=== PATIENT | male | born 1990 | race Caucasian/White ===

== ENCOUNTER 2017-01-21 03:00 | Inpatient (IN) | payer MEDICARE, MEDICAID ==
[~2017-01-21] VITALS: Ht 175.3 cm; Wt 73.0 kg
--- NOTE | ~2017-01-21 | HP ---
[facility] 26 Y [address] ROOM: [address] [address] LOCATION: GICU ADMIT DATE: 01/21/2017 History & Physical DISCHARGE DATE: FAMILY PHYSICIAN: PHYSICIAN, UNKNOWN ATTENDING PHYSICIAN: ELLA CAMERON V DATE OF SERVICE: CHIEF COMPLAINT FOR THIS ADMISSION: Nausea and vomiting. HISTORY OF PRESENT ILLNESS: The patient is a 26-year-old male with a past medical history of insulin- dependent diabetes with recurrent DKA. The patient presented to the ER in [place] earlier today with complaints of vomiting. There, he was found to be in severe DKA with a bicarb of 6, glucose in the 1000s, and potassium of 7. He also had a creatinine of 2.46, which is up from baseline. The patient denies any fevers, chills, diaphoresis, or dysuria leading up to his presentation. REVIEW OF SYSTEMS: Positive for need to urinate as well as nausea and vomiting. PAST MEDICAL HISTORY: The patient denies though review of records does show recurrent DKA as well history of severe gastritis, Ya esophagitis. CURRENT MEDICATIONS: 1. Lantus. 2. NovoLog. SOCIAL HISTORY: The patient denies any drug, tobacco, or alcohol use. FAMILY HISTORY: The patient denies. PHYSICAL EXAMINATION: VITAL SIGNS: At this point, his blood pressure is 110s/80s, heart rate is 140, satting 96% on room air, afebrile, and respirations are in mid 20s. GENERAL: Appears as an ill, middle-aged male, in mild distress due to nausea and retching. NEUROLOGIC: Exam is nonfocal. EYES: Exam shows pupils are equal and reactive to light. [facility] AGE: 26 Y [address] ROOM: [address] [address] LOCATION: GICU ADMIT DATE: 01/21/2017 History & Physical DISCHARGE DATE: FAMILY PHYSICIAN: PHYSICIAN, UNKNOWN ATTENDING PHYSICIAN: ELLA CAMERON V LYMPHATIC: Exam shows no cervical lymphadenopathy. ENDOCRINE: Exam shows no thyromegaly. ENT: Exam reveals dry mucous membranes. LUNGS: Clear to auscultation. HEART: Rate is tachycardic and regular. No appreciable murmurs, gallops, or rubs. GI: Abdomen is soft, nontender, and nondistended. : No costovertebral angle tenderness. VASCULAR: A 2+ pedal pulses. MUSCULOSKELETAL: No muscle or joint abnormalities. PSYCHIATRIC: Exam shows irritated mood, but preserved cognition and affect. LABORATORY DATA: Studies from the outside facility are significant for white count of 28,000, hemoglobin of 17.5, and platelets of 516. Sodium 140, potassium 7.0, chloride 90, carbon dioxide is 6, glucose is 1067, BUN 44, and creatinine 2.46. Subsequent to the patient having received normal saline, bicarb, and insulin as well as calcium as requested by me, his potassium improved to 5.7. His EKG from the outside facility shows sinus tachycardia with diffusely peaked T- waves consistent with hyperkalemia. Urinalysis is remarkable for elevated glucose. ASSESSMENT AND PLAN: This is a 26-year-old male admitted for: 1. Diabetic ketoacidosis. We will begin the patient on an insulin drip and continue replacing fluids. We will check serial electrolytes and when his potassium level comes down we will change the fluids to potassium containing normal saline. Once his Accu-Cheks improved to below 250, we will switch the fluids to dextrose containing. Once his anion gap closes, we will discontinue the insulin drip. 2. Hyperkalemia. This is improved, but we will check his EKG for resolution of changes and monitor his potassium closely. 3. Acute kidney injury. This is due to severe dehydration. We will hydrate the patient and trend his renal function. 4. Insulin-dependent diabetes. We will request a nurse educator as the patient is clearly not in good control of his diabetes. 5. Leukocytosis. We will draw blood cultures, but at this point, I do not appreciate a focus of infection. 6. Additional management will depend on clinical course. Time dedicated to this patient's encounter is 35 minutes. ELLA CAMERON MD PATIENT'S NAME: YOKO CURRAN [facility] AGE: 26 Y [address] ROOM: [place] [id number] LOCATION: [facility] ADMIT DATE: 01/21/2017 History & Physical DISCHARGE DATE: FAMILY PHYSICIAN: PHYSICIAN, UNKNOWN ATTENDING PHYSICIAN: ELLA CAMERON/ash /[id number] D: [id number] T: HISTORY & PHYSICAL
[~2017-01-21 03:00] MED LIST changes: -NAPROXEN500 MG PO; -PEPTO-BISM525 MG/15 PO; -REGLAN10 MG PO; -ZOLOFT25 MG PO
[2017-01-21 04:29] LABS: BICARBONATE 15.8 mmol/L (18.0-23.0); LACTATE 5.4 mEq/L (0.50-1.60); PCO2 36 mmHg (35-45)
[2017-01-21 04:30] LABS: PO2 42 mmHg (80-90)
[2017-01-21 04:32] LABS: BASOPHIL # 0.1 K/uL (0.0-0.2); BASOPHIL % 0.3 %; HEMATOCRIT 54.3 % (37.0-53.0); IMMATURE GRANULOCYTE # 0.3 K/uL (0.0-0.3); IMMATURE GRANULOCYTE % 1.1 %; LYMPHOCYTE # 1.4 K/uL (0.8-4.0); LYMPHOCYTE % 5.8 %; MCHC 33.1 gm/dL (32.0-36.5); MCV 81.5 fl (83.0-98.0); MONOCYTE # 1.5 K/uL (0.0-1.0); MONOCYTE % 6.3 %; MPV 9.7 fl (9.4-12.4); NEUTROPHIL # (ANC) 20.3 K/uL (1.4-9.0); NEUTROPHIL % 86.5 %; NRBC % 0 /100WBC (0-0.00); PLATELET COUNT 468 K/uL (150-450); RBC 6.66 M/uL (4.00-6.00); RDW-CV 13.5 % (11.9-14.6); WBC 23.5 K/uL (4.0-11.0)
[2017-01-21 04:47] LABS: ALK PHOS 124 IU/L (33-138); ALT 29 IU/L (12-78); AST 9 IU/L (10-40); BLOOD UREA NITROGEN 48 mg/dL (6-24); CALCIUM 9.3 mg/dL (8.5-10.5); CHLORIDE 106 mMol/L (96-110); CREATININE 2.4 mg/dL (0.6-1.3); ESTIMATED GFR (MDRD EQUATION) 32; POTASSIUM 4.5 mMol/L (3.7-5.1); SODIUM 144 mMol/L (135-145); TOTAL BILIRUBIN 0.7 mg/dL (0.0-1.5); TOTAL PROTEIN 8.3 g/dL (6.0-8.4)
[2017-01-21 04:51] LABS: ANION GAP 27.5 (10.0-19.0); CO2 15 mMol/L (22-32)
[2017-01-21 05:02] LABS: MAGNESIUM 2.9 mg/dL (1.3-2.6); PHOSPHORUS 3.1 mg/dL (2.5-4.9)
[2017-01-21 05:38] LABS: BILIRUBIN URINE NEGATIVE (NEGATIVE); BLOOD URINE 10 /UL (NEGATIVE); COLOR URINE YELLOW (YELLOW); GLUCOSE URINE 1000 mg/dL (NEGATIVE); KETONE URINE 150 mg/dL (NEGATIVE); LEUKOCYTES URINE 25 /UL (NEGATIVE); NITRITE URINE NEGATIVE (NEGATIVE); PROTEIN URINE 30 mg/dL (NEGATIVE); TURBIDITY URINE CLEAR (CLEAR); UROBILINOGEN URINE NORMAL (NORMAL)
[2017-01-21 05:44] LABS: BACTERIA URINE NEGATIVE (NEGATIVE); EPITHELIAL URINE 0-2 #/HPF (NEGATIVE)
--- NOTE | 2017-01-21 06:38 | NUR ---
Significant Event: AOx3. Generally weak throughout. Sinus tach, 130-150s. BP stable. Afebrile. Room air, lung sounds clear. Bowel sounds active. Nausea reported, emesis x1. Chan catheter placed this shift with dilute clear UOP. Skin abnormalities noted. PIV x2 intact with insulin infusing at 8u/hr currently and NS at 125/hr. Follow up: Monitor BG.
[2017-01-21 08:38] LABS: CALCIUM 9.2 mg/dL (8.5-10.5); CREATININE 2.3 mg/dL (0.6-1.3); POTASSIUM 3.9 mMol/L (3.7-5.1)
[2017-01-21 08:40] LABS: ANION GAP 13.9 (10.0-19.0); MAGNESIUM 2.9 mg/dL (1.3-2.6); PHOSPHORUS 1.3 mg/dL (2.5-4.9)
[2017-01-21] MEDS ORDERED: PEPTO-BISM525 MG/15 PO (09:23)
[2017-01-21 13:42] LABS: CALCIUM 8.7 mg/dL (8.5-10.5); CREATININE 1.8 mg/dL (0.6-1.3); POTASSIUM 4.5 mMol/L (3.7-5.1)
[2017-01-21 13:43] LABS: ANION GAP 16.5 (10.0-19.0)
--- NOTE | 2017-01-21 15:49 | NUR ---
Significant Event: Patient alert/oriented x3. RA with good saturations. No c/o pain/discomfort. Ambulates with minimal assist, with that being said patient requests that nursing do a lot of tasks for him. For instance, needs his foot scratched or needs his HOB elevated. Patient was able to take a 2 hour nap this afternoon, after he woke up his mood/cognition seem to be back to baseline for him, according to patient. Insulin gtt off and now back on scheduled subcataneous insulin and sliding scale. Afebrile, Sinus tach but this has significantly decreased throughout the shift from 150's down to 1 teens. SBP stable. Chan d/cd and has voided, he refuses to void in urinal for measuring, states he is physically unable to do that. Patient requests a lot of sugary drinks like regular gatorade and apple juice, educated several times on his sugar intake, but doesn't seem to be concerned. Next BMP at 1700, need to call results to hospitalist. PCU/NTU status this afternoon. Follow up:
[2017-01-21 17:00] LABS: CALCIUM 8.2 mg/dL (8.5-10.5); CREATININE 1.6 mg/dL (0.6-1.3); POTASSIUM 4.3 mMol/L (3.7-5.1)
[2017-01-21 17:04] LABS: ANION GAP 15.3 (10.0-19.0)
--- NOTE | 2017-01-22 04:20 | NUR ---
Significant Event: AOx3. SR-ST 90-110s. BP stable. Room air, VSS. Blood glucose treated x2 for <70. Voids per bathroom, showered this shift. Afebrile. D51/2NS infusin at 75ml/hr. Follow up: Continue. Address hypoglycemia throughout night.
[2017-01-22 05:25] LABS: BASOPHIL % 0.3 %; EOSINOPHIL % 0.2 %; HEMOGLOBIN 13.8 g/dL (12.0-17.0); IMMATURE GRANULOCYTE % 0.2 %; LYMPHOCYTE # 2.1 K/uL (0.8-4.0); LYMPHOCYTE % 16.5 %; MCH 27.4 pg (27.0-34.0); MCV 81.7 fl (83.0-98.0); MONOCYTE # 1.1 K/uL (0.0-1.0); MONOCYTE % 8.5 %; MPV 9.3 fl (9.4-12.4); NEUTROPHIL # (ANC) 9.6 K/uL (1.4-9.0); NEUTROPHIL % 74.3 %; NRBC % 0 /100WBC (0-0.00); RBC 5.04 M/uL (4.00-6.00); RDW-CV 13.3 % (11.9-14.6)
[2017-01-22 05:26] LABS: HEMATOCRIT 41.2 % (37.0-53.0); MCHC 33.5 gm/dL (32.0-36.5); PLATELET COUNT 325 K/uL (150-450)
[2017-01-22 05:43] LABS: ALBUMIN 2.9 gm/dL (3.5-5.0); ALK PHOS 69 IU/L (33-138); ALT 20 IU/L (12-78); ANION GAP 14.8 (10.0-19.0); AST 18 IU/L (10-40); BLOOD UREA NITROGEN 21 mg/dL (6-24); CALCIUM 7.9 mg/dL (8.5-10.5); CHLORIDE 110 mMol/L (96-110); CO2 24 mMol/L (22-32); CREATININE 1.2 mg/dL (0.6-1.3); ESTIMATED GFR (MDRD EQUATION) > 60; MAGNESIUM 2.3 mg/dL (1.3-2.6); PHOSPHORUS 2.4 mg/dL (2.5-4.9); POTASSIUM 3.8 mMol/L (3.7-5.1); SODIUM 145 mMol/L (135-145); TOTAL BILIRUBIN 0.8 mg/dL (0.0-1.5); TOTAL PROTEIN 5.9 g/dL (6.0-8.4)
--- NOTE | 2017-01-22 09:17 | NUR ---
PT SCREENED D/T MST. WT CONSISTENT W/ LAST ADMIT. WILL ASSIST NEEDED.
--- NOTE | 2017-01-22 13:16 | NUR ---
Diabetes Consult: Patient is well known to me from previous admissions. The patient has had recurrent hospitalizations for DKA. He reports that the FURNITURE PAINTER in [place] will no longer let him live in his home alone if he is hosptalized one more time with DKA. The patient has a caregiver, Edith, that comes into his home Sunday through Sunday from [phone] to help him and remind him to take his insulin. He reports that on the weekends, he receives a telephone call reminding him to take his insulin. He denies missing insulin doses. The patient admits it has been some time since his insulin doses were adjusted. He has failed to keep his appointments. The patient reports he used to see Diane MIX, and has not established care with anyone since. Patient reports he used to be "better controlled" when he saw Dr. Yobani Presley. The patient would like to reestablish care with Dr. Presley. Appointment made with Joann on January 26 at 0930. Recommended the clinic set him up with the CDE at [facility] as well. Patient was given a Contour one USB glucometer and plenty of sample test strips. The patient was instructed to have his caregiver help him set up an account online so trends can be printed and shared with the clinic. Patient is agreeable to the plan. Rashard any other questions. Phone called placed to Dr. John, who is agreeable with the plan and will discharge the patient once he has eaten.
--- NOTE | 2017-01-22 13:30 | NUR ---
Introduced self and role of care management to patient. Patient lives alone in [place]. His mother is in [facility] in [place]. Patient has a caregiver through [facility]. He says Kathi is his careprovider and she is at his house 5 days a week. She helps with cleaning, does his cooking and makes sure he takes his medications and insulin. He says he has been doing OK at home until he got sick. He says he started getting sick Sunday night and was sick on Sunday and finally called his friend Chris, who is Kathi's dad. He said Chris came to his house and called EMS. Patient is concerned his "Dr.", Makeda High APRN will make him go to a longterm. He says she told him if he had to go to the hospital again she would see that he had to go to a longterm or [facility]. He is sure she is working on it right now. He says he lives in his grandmother's house and only plans to leave there someday in a body bag. He does not want to go to a longterm. He has a freezer person Grady through [facility] and he says I can call and talk to Grady but he is sure Makeda has already talked to him. Told him I will call Grady and she what he recommends. He really wants to go back to his home. [facility] left for Grady Saha at [facility]. Will follow.
[2017-01-22] MEDS ORDERED: REGLAN10 MG PO (13:40)
--- NOTE | 2017-01-22 15:12 | NUR ---
Discharge instructions given to patient and also to friend Chris. Patient stated that he understood the importance of his medications and how that medication is keeping him out of the hospital. He states he understood how to check his blood sugar, nurse made him check his blood sugar prior to going home on his own meter, and he did do this. BG was 163, patient refused insulin prior to going home, he stated he would be home shortly and he would recheck himself and treat himself. Patient was wheeled to [facility] for discharge.
== END 2017-01-22 15:12 | disposition disaster alternative care site (69) | DRG 638 ==
LOC: GICU 03:38
PROVIDERS: Hospitalist; ADMIT Internal Medicine
DX: E13.10 Other specified diabetes mellitus with ketoacidosis without coma (principal); E87.0 Hyperosmolality and hypernatremia; N17.9 Acute kidney failure, unspecified; D75.1 Secondary polycythemia; E87.5 Hyperkalemia; D72.829 Elevated white blood cell count, unspecified; E86.0 Dehydration; Z79.4 Long term (current) use of insulin
CPT/HCPCS: C9113; J2020; J2543; J2550; J7030; J7040; J7050

== ENCOUNTER → 2017-01-21 | Outpatient (CLI) | payer MEDICARE, MEDICAID ==
[~2017-01-21] MED LIST: ADVIL LIQUI-GE200 MG PO; CEPACOL SORE T1 EAC1 PO; DIFLUCAN100 MG PO; GLUCAGON EMERGEN1 MG SUB-Q; GLUCOSE4 GM PO; K-TAB 10MEQ10 MEQ PO; K-TAB ER20 MEQ PO; LANTUS SOL100 UNIT/1 SUB-Q; NAPROXEN500 MG PO; NOVOLOG FL100 UNIT/1 SUB-Q; OMEPRAZOLE20 MG PO; PEPTO-BISM525 MG/15 PO; PRILOSEC20 MG PO; PROTONIX40 MG PO; REGLAN10 MG PO; TYLENOL EXTRA500 MG PO; ZOLOFT25 MG PO
== END | disposition disaster alternative care site (69) ==
LOC: GAIR 03:28
DX: E11.65 Type 2 diabetes mellitus with hyperglycemia (principal); R11.2 Nausea with vomiting, unspecified; Z79.4 Long term (current) use of insulin; Z79.899 Other long term (current) drug therapy
CPT/HCPCS: A0422; A0431; A0436

== ENCOUNTER 2017-04-23 10:02 | Inpatient (IN) | payer MEDICARE, MEDICAID ==
[~2017-04-23] VITALS: Ht 175.3 cm; Wt 76.9 kg
--- NOTE | ~2017-04-23 | DS ---
PATIENT'S NAME: YOKO CURRAN [facility] AGE: 27 Y [address] ROOM: [address] [place], [place] [address] LOCATION: GPCU ADMIT DATE: 04/23/2017 Discharge Summary DISCHARGE DATE: 04/24/2017 FAMILY PHYSICIAN: PHYSICIAN, NO ATTENDING PHYSICIAN: Kye LEA FINAL DIAGNOSES: 1. Diabetic ketoacidosis. 2. Viral gastroenteritis. 3. Anion gap metabolic acidosis. 4. Dehydration. 5. Hyperkalemia. Please see the history and physical dictated by Dr. Lea for details of admission. In short, the patient presented after acute onset of nausea and vomiting at 4 a.m., which was attributed to eating. He checked his blood sugar at that time and it was in the 200s. He did return home and then it did get in the 400s at that time. He presented to the ER for evaluation. LABORATORY DATA: On admission; his ABGs; pH of 7.11, pCO2 of 35, and pO2 of 57. His lactate was 6. Sodium on admission was 134, discharge 142. Potassium on admission was 5, discharge 4.2. BUN on admission was 29, discharge 16. Creatinine on admission 1.7, discharge 1.2. Liver enzymes; his AST was 9, ALT 19. His ketones were positive at 1:32, hemoglobin A1c 11.3. On admission; white blood cell count 20.6, hemoglobin 18, hematocrit 53, and platelet count 503. Most prior to discharge; white blood cell count 12.2, hemoglobin 12.8, hematocrit 37.1, and platelet count 308. Procalcitonin on admission was 0.12. Urinalysis did show a 1000 mg of glucose and positive ketones. X-RAY DATA: Chest x-ray on admission did not show any acute process. HOSPITAL COURSE: The patient was admitted to PCU with a diagnosis of diabetic ketoacidosis. He was felt that he had pretty significant acidosis. He was started on IV insulin protocol. He was given aggressive IV fluids. He was also given a dose of IV Protonix. The patient was not febrile on admission. His chest x-ray was negative. It was felt that this most likely was brought on by viral gastroenteritis. His blood sugars did respond very nicely. His acidosis did resolve. He was able to be converted to his insulin doses at home. The acidosis resolved much quicker than anticipated. The patient was feeling much better, was able to eat and drink without any difficulty. It was felt that he would be stable for discharge to follow up with his primary diabetes provider, Rama Ivan. DISCHARGE INSTRUCTIONS: He is to follow his diabetic diet. Follow up with PATIENT'S NAME: YOKO CURRAN [facility] AGE: 27 Y [address] ROOM: [place] [address] LOCATION: GPCU ADMIT DATE: 04/23/2017 Discharge Summary DISCHARGE DATE: 04/24/2017 FAMILY PHYSICIAN: PHYSICIAN, NO ATTENDING PHYSICIAN: Kye LEA in 3 to 5 days. DISCHARGE MEDICATIONS: 1. His insulin NovoLog 15 units subcu 3 times daily with meals. 2. Lantus 60 units at bedtime. 3. Tylenol 1000 mg every 6 hours. 4. Glucagon 1 mg subcu as needed for hypoglycemia. 5. Dextrose 16 grams as needed for hypoglycemia. 6. Omeprazole 20 mg daily. 7. Cepacol throat lozenges 1 to 2 every 3 hours as needed. 8. Pepto-Bismol 30 mL every 6 hours as needed. 9. Reglan 10 mg every 8 hours as needed. 10. Naproxen 1000 mg twice daily. It was recommended to the patient that he get into a regular exercise program. He did share with me he thought some of his sugars had gotten worse since he has not been as active with [employer]. PATRICIA LUONG MD LAW/modl /[id number] d: 04/25/171800 t: 05/04/171831, DISCHARGE SUMMARY
--- NOTE | ~2017-04-23 | ER ---
PATIENT'S NAME: [facility] AGE: 27 Y [address] ROOM: [place] [id number] LOCATION: GPCU ADMIT DATE: 04/23/2017 ER/Outpatient Report DISCHARGE DATE: FAMILY PHYSICIAN: PHYSICIAN, NO ATTENDING PHYSICIAN: Kye LEA Time of Arrival: 1002 hours. Time of Evaluation: 1005 hours. CHIEF COMPLAINT: Nausea. HISTORY OF PRESENT ILLNESS: The patient is a 27-year-old male who presents to the emergency department today with a chief complaint of nausea and vomiting. He reports that his blood sugars have been in the 400s. He is accompanied by his deputy sheriff generalist/bailiff. The patient does have a history of DKA in the past. He reports about 24 hours prior to arrival he has had nausea and vomiting. He does report that he has been taking his insulin. Prepress Stripper is not sure if he is 100% telling the truth. Denies any fevers or chills. He did have a few episodes of diarrhea, no constipation. Denies any shortness of breath. No chest pain, no cough. The patient does report this does not feel similar to his previous DKA in the past. PAST MEDICAL HISTORY: He was most recently admitted for DKA on January 25, 2017. PAST MEDICAL HISTORY: Type 1 diabetes mellitus and gastroesophageal reflux disease. PAST SURGICAL HISTORY: EGD and right knee arthroscopy. SOCIAL HISTORY: The patient denies any tobacco use. Reports rare alcohol use. Denies any illicit drug use. ALLERGIES: NO KNOWN DRUG ALLERGIES. MEDICATIONS: 1. NovoLog. 2. Lantus. Please see list. PATIENT'S NAME: [facility] AGE: 27 Y [address] ROOM: [address] [address] LOCATION: GPCU ADMIT DATE: 04/23/2017 ER/Outpatient Report DISCHARGE DATE: FAMILY PHYSICIAN: PHYSICIAN, NO ATTENDING PHYSICIAN: Kye LEA PRIMARY CARE DOCTOR: Rama Moffett. Has no other primary care provider. REVIEW OF SYSTEMS: All systems are reviewed by myself and are negative with the exception of those discussed in HPI and past medical history. PHYSICAL EXAMINATION: VITAL SIGNS: Weight 74 kg. Blood pressure 139/84, pulse 129, respiratory rate 20, temperature 98.4, and oxygen saturation 98% on room air. GENERAL: The patient is a 27-year-old male, appears older than stated age, slightly disheveled, in no acute distress. HEENT: Normocephalic, atraumatic. Pupils are equal, round, and reactive to light. Mucous membranes are dry. NECK: Supple. There is no nuchal rigidity. CARDIOVASCULAR: Regular rate and rhythm. No murmurs, rubs, or gallops. LUNGS: Clear to auscultation bilaterally. No wheezes, rales, or rhonchi. ABDOMEN: Soft. Mild diffuse tenderness to palpation. No rebound, rigidity, or guarding. Positive bowel sounds. MUSCULOSKELETAL: The patient moves all 4 extremities. SKIN: Warm and dry without rashes or lesions noted. LABORATORY DATA AND X-RAYS: EKG is obtained, is interpreted by myself at 1026 hours shows sinus tachycardia with a rate of 111, normal axis, normal interval. No ST elevation, ST depression, or T-wave inversions. Venous blood gas: 7.11/35/57/12/-17.4. Lactate 6.0. CBC: White blood cell count 20.6, hemoglobin 18.8, hematocrit 53.4, and platelets 503. CMP unremarkable except for sodium 134, chloride of 97, CO2 10, BUN 29, creatinine 1.7, and glucose 456. LFTs are normal. CK is normal. One-view chest x-ray is obtained, is interpreted by myself shows no acute process. Urinalysis is unremarkable except for 1000 glucose, 150 ketones, 10 blood, rare rbc's, and epithelials. Procalcitonin 0.12. Acetone is positive 1:32. IMPRESSION: 1. Diabetic ketoacidosis. 2. Nausea, vomiting, and diarrhea. 3. Anion gap metabolic acidosis due to diabetic ketoacidosis. 4. Dehydration secondary to diabetic ketoacidosis. 5. Hyperkalemia due to diabetic ketoacidosis. 6. Acute kidney injury secondary to diabetic ketoacidosis. 7. Critical care time 34 minutes. 8. Initial visit. EMERGENCY DEPARTMENT COURSE: PATIENT'S NAME: YOKO CURRAN [facility] AGE: 27 Y [address] ROOM: [place] [address] LOCATION: GPCU ADMIT DATE: 04/23/2017 ER/Outpatient Report DISCHARGE DATE: FAMILY PHYSICIAN: OLY BOATENG ATTENDING PHYSICIAN: Kye LEA The patient was brought back to the examination room. Seen and evaluated by myself. IV is established. Laboratory analysis and imaging are obtained as described above. The patient is given 4 mg of Zofran IV. EKG is obtained as described above. He is given 2 L boluses of normal saline here in the emergency department, he does begin his 3rd L. The patient is noted to be in DKA. He is initiated on insulin drip. He is given 0.1 mg/kg 8 units bolus and then 8 units/hour IV drip. I have discussed results with the patient and his caregiver who is at the bedside. I have recommend admission to the hospital for further evaluation, treatment, and management. The patient is agreeable. I have contacted Dr. Lea with the Hospitalist Service. He has seen and evaluated the patient down here in the emergency department. He does agree to accept the patient for further evaluation, treatment, and management. The patient did require cumulative critical care time of 34 minutes, this time did include talking with family, talking with caregivers, talking with the patient, talking with consultants, ordering tests, reviewing tests, as well as close monitoring of the patient with diabetic ketoacidosis requiring insulin drip and multiple fluid boluses. DISPOSITION: The patient is admitted under the care of Hospitalist Service in stable condition. DO NANCY MORTON/lazaral /[id number] d: 04/23/17 182 t: 04/24/17 1534, OUTPATIENT REPORT
--- NOTE | ~2017-04-23 | HP ---
PATIENT'S NAME: YOKO CURRAN [facility] AGE: 27 Y [address] ROOM: [place] [id number] LOCATION: GPCU ADMIT DATE: 04/23/2017 History & Physical DISCHARGE DATE: FAMILY PHYSICIAN: PHYSICIAN, NO ATTENDING PHYSICIAN: Kye BRADSHAW DATE OF SERVICE: CHIEF COMPLAINT: Nausea and vomiting. HISTORY OF PRESENT ILLNESS: The patient is a 27-year-old gentleman who presents here with an episode of nausea, vomiting, and diarrhea. The patient reports that he got off around 4:30 a.m. and had 1 episode of diarrhea. Subsequently, he had 6-7 episodes of non-bloody nausea and vomiting. The patient reports that he was fatigued and tired during this episode. The patient came to the emergency department for further investigation as he thought this might be his DKA. On initial ED evaluation, the patient was found to be in DKA and was treated with IV fluid and insulin. The patient was recently admitted to our hospital on January 25, 2017 with DKA. He reports that he has been admitted 4 times with DKA since he was diagnosed with type 1 diabetes mellitus. The patient denies missing his insulin regimen. The patient takes Lantus of 60 units and NovoLog of 15 t.i.d. with meals. He denies chest pain, shortness of breath, abdominal pain, fever, chills, and productive cough. PAST MEDICAL HISTORY: 1. Type 1 diabetes mellitus. 2. GERD. PAST SURGICAL HISTORY: 1. EGD. 2. Right knee arthroscopy. FAMILY HISTORY: Mother has epilepsy. SOCIAL HISTORY: The patient denies smoking, seldom he drinks, and works as a caregiver. MEDICATIONS: Currently being reconciled. REVIEW OF SYSTEMS: All systems have been reviewed and are negative except for what I mentioned in PATIENT'S NAME: OSCAR CURRANH Dheeraj [facility] AGE: 27 Y [address] ROOM: [address] [address] LOCATION: GPCU ADMIT DATE: 04/23/2017 History & Physical DISCHARGE DATE: FAMILY PHYSICIAN: PHYSICIAN, NO ATTENDING PHYSICIAN: Kye BRADSHAW the HPI. LABORATORY DATA: Sodium 134, potassium of 5, CO2 of 10, creatinine of 1.7, and blood glucose of 456. White blood count of 20, hemoglobin 18, and platelet of 503. Initial ABG showed pH of 7.11, pCO2 35, and a bicarb of 11. Lactate of 6. PHYSICAL EXAMINATION: VITAL SIGNS: Temperature 98, blood pressure 134/77, respiratory rate 16, heart rate of 93, saturating 98% on room air. GENERAL APPEARANCE: The patient is non toxic looking, in no acute distress, sitting by the bed. HEAD: Normocephalic and atraumatic. EYES: Extraocular muscles intact. No discharge. NOSE: No nasal discharge. EARS: No ear discharge. ORAL CAVITY: Oral mucosa dry. CHEST: Clear to auscultation bilaterally. HEART: Rate tachycardic. No murmur, rubs, or gallops. ABDOMEN: Soft, nontender, and nondistended. Bowel sounds present. SKIN: Warm to touch. MUSCULOSKELETAL: Range of motion intact. No joint effusion noted. FURNITURE INSTALLER: Alert and oriented x3. Motor and sensory grossly intact. ASSESSMENT AND PLAN: 1. Diabetic ketoacidosis. Etiology most likely secondary to viral gastroenteritis. We will treat the patient with insulin drip and IV fluids. We will follow the patient's electrolytes closely. We will acquire renal function panel every 4 hours and VBG every 4 hours. 2. Viral gastroenteritis. The patient is presenting with an episode of diarrhea, nausea, and vomiting. White blood cell count of 20. Chest x- ray, initial negative. Abdomen, benign. We will treat symptomatically and with supportive care. 3. Anion gap metabolic acidosis. Etiology secondary to elevated lactic acid secondary to dehydration and diabetic ketoacidosis. We will treat underlying etiology. 4. Dehydration. Continue IV fluid. 5. Hyperkalemia. Potassium of 5. Initial EKG shows sinus tachycardia. No peak T-waves seen. Etiology secondary to diabetic ketoacidosis. We will treat underlying etiology. We will follow potassium closely. Greater than 40 minutes was spent on the patient's care. Assessment and plan was discussed with the patient. We will admit the patient for DKA. PATIENT'S NAME: YOKO CURRAN [facility] AGE: 27 Y [address] ROOM: [place] [address] [facility] AD[facility] DATE: 04/23/2017 History & Physical DISCHARGE DATE: FAMILY PHYSICIAN: PHYSICIAN, NO ATTENDING PHYSICIAN: Kye BRADSHAW MD MICHAEL PINO/lazaral /[id number] D: [id number] T: [id number] HISTORY & PHYSICAL
[~2017-04-23 10:02] MED LIST changes: +PEPTO-BISM525 MG/15 PO; +REGLAN10 MG PO
[2017-04-23 10:29] LABS: BASOPHIL # 0.1 K/uL (0.0-0.2); BASOPHIL % 0.5 %; IMMATURE GRANULOCYTE # 0.1 K/uL (0.0-0.3); IMMATURE GRANULOCYTE % 0.6 %; LYMPHOCYTE # 1.5 K/uL (0.8-4.0); LYMPHOCYTE % 7.5 %; MCV 82.9 fl (83.0-98.0); MONOCYTE # 0.5 K/uL (0.0-1.0); MONOCYTE % 2.2 %; MPV 9.5 fl (9.4-12.4); NEUTROPHIL # (ANC) 18.4 K/uL (1.4-9.0); NEUTROPHIL % 89.2 %; NRBC % 0 /100WBC (0-0.00); RDW-CV 12.3 % (11.9-14.6)
[2017-04-23 10:30] LABS: PCO2 35 mmHg (35-45); PO2 57 mmHg (80-90)
[2017-04-23 10:31] LABS: BICARBONATE 11.1 mmol/L (18.0-23.0)
[2017-04-23 10:35] LABS: HEMATOCRIT 53.4 % (37.0-53.0); MCHC 33.7 gm/dL (32.0-36.5); PLATELET COUNT 503 K/uL (150-450); RBC 6.44 M/uL (4.00-6.00); WBC 20.6 K/uL (4.0-11.0)
[2017-04-23 10:54] LABS: ALBUMIN 4.6 gm/dL (3.5-5.0); ALK PHOS 109 IU/L (33-138); ALT 36 IU/L (12-78); BLOOD UREA NITROGEN 29 mg/dL (6-24); CALCIUM 9.4 mg/dL (8.5-10.5); CHLORIDE 97 mMol/L (96-110); CREATININE 1.7 mg/dL (0.6-1.3); SODIUM 134 mMol/L (135-145); TOTAL BILIRUBIN 0.9 mg/dL (0.0-1.5); TOTAL PROTEIN 8.6 g/dL (6.0-8.4)
[2017-04-23 10:55] LABS: AST 18 IU/L (10-40); CO2 10 mMol/L (22-32); CPK 93 IU/L (35-332); ESTIMATED GFR (MDRD EQUATION) 48
[2017-04-23 12:15] LABS: BILIRUBIN URINE NEGATIVE (NEGATIVE); BLOOD URINE 10 /UL (NEGATIVE); COLOR URINE YELLOW (YELLOW); GLUCOSE URINE 1000 mg/dL (NEGATIVE); KETONE URINE 150 mg/dL (NEGATIVE); LEUKOCYTES URINE NEGATIVE /UL (NEGATIVE); NITRITE URINE NEGATIVE (NEGATIVE); PROTEIN URINE 30 mg/dL (NEGATIVE); TURBIDITY URINE CLEAR (CLEAR); UROBILINOGEN URINE NORMAL (NORMAL)
[2017-04-23 12:32] LABS: RBC URINE RARE #/HPF (NEGATIVE); WBC URINE NEGATIVE #/HPF (NEGATIVE)
[2017-04-23 12:33] LABS: BACTERIA URINE NEGATIVE (NEGATIVE); EPITHELIAL URINE RARE #/HPF (NEGATIVE)
[2017-04-23] MEDS ORDERED: NAPROXEN500 MG PO (15:02)
[2017-04-23 16:26] LABS: PCO2 36 mmHg (35-45)
[2017-04-23 16:27] LABS: BICARBONATE 17.3 mmol/L (18.0-23.0); PO2 87 mmHg (80-90)
[2017-04-23 16:41] LABS: ALBUMIN 3.4 gm/dL (3.5-5.0); ALK PHOS 69 IU/L (33-138); ALT 25 IU/L (12-78); AST 10 IU/L (10-40); BLOOD UREA NITROGEN 20 mg/dL (6-24); CALCIUM 7.9 mg/dL (8.5-10.5); CHLORIDE 109 mMol/L (96-110); CREATININE 1.1 mg/dL (0.6-1.3); POTASSIUM 4.4 mMol/L (3.7-5.1); SODIUM 140 mMol/L (135-145); TOTAL PROTEIN 6.3 g/dL (6.0-8.4)
[2017-04-23 16:43] LABS: ANION GAP 18.4 (10.0-19.0); CO2 17 mMol/L (22-32); ESTIMATED GFR (MDRD EQUATION) > 60; TOTAL BILIRUBIN 0.7 mg/dL (0.0-1.5)
[2017-04-23 17:10] LABS: BICARBONATE 18.5 mmol/L (18.0-23.0); PCO2 35 mmHg (35-45); PO2 108 mmHg (80-90)
--- NOTE | 2017-04-23 18:33 | NUR ---
D:Recieved report at 1235 from Fe in ER. Bed not available till 1415. Patient arrived in room. Is alert and oreintated, able to answer questions. Has someone to help him with his medications at home. Is fairly familiar with them. Has insulin gtt infusing on arrival to unit. Can only have water. P:Monitor accuchecks and lab work
--- NOTE | 2017-04-23 18:36 | NUR ---
Significant Event:Patient has insulin gtt infusing at 6 units/hr currently. Its running per protocol. Is on room air. No c/o nausea at this time. No stools. Follow up:Call 2100 lab work to hospitalist, continue hourly accuchecks
[2017-04-23 21:04] LABS: BICARBONATE 23.2 mmol/L (18.0-23.0); PCO2 45 mmHg (35-45); PO2 46 mmHg (80-90)
[2017-04-23 21:24] LABS: ALBUMIN 3.3 gm/dL (3.5-5.0); ALK PHOS 65 IU/L (33-138); ALT 22 IU/L (12-78); ANION GAP 13.8 (10.0-19.0); AST 10 IU/L (10-40); BLOOD UREA NITROGEN 16 mg/dL (6-24); CALCIUM 7.8 mg/dL (8.5-10.5); CHLORIDE 110 mMol/L (96-110); CO2 21 mMol/L (22-32); CREATININE 1.1 mg/dL (0.6-1.3); ESTIMATED GFR (MDRD EQUATION) > 60; POTASSIUM 3.8 mMol/L (3.7-5.1); SODIUM 141 mMol/L (135-145); TOTAL BILIRUBIN 0.7 mg/dL (0.0-1.5); TOTAL PROTEIN 5.9 g/dL (6.0-8.4)
[2017-04-24 01:07] LABS: BICARBONATE 22.1 mmol/L (18.0-23.0); PCO2 42 mmHg (35-45)
[2017-04-24 01:09] LABS: PO2 101 mmHg (80-90)
[2017-04-24 01:30] LABS: ALK PHOS 59 IU/L (33-138); ALT 23 IU/L (12-78); ANION GAP 14.1 (10.0-19.0); AST 9 IU/L (10-40); BLOOD UREA NITROGEN 17 mg/dL (6-24); CALCIUM 7.8 mg/dL (8.5-10.5); CHLORIDE 109 mMol/L (96-110); CO2 21 mMol/L (22-32); CREATININE 1.1 mg/dL (0.6-1.3); ESTIMATED GFR (MDRD EQUATION) > 60; POTASSIUM 4.1 mMol/L (3.7-5.1); SODIUM 140 mMol/L (135-145); TOTAL PROTEIN 5.6 g/dL (6.0-8.4)
[2017-04-24 01:37] LABS: TOTAL BILIRUBIN 0.9 mg/dL (0.0-1.5)
--- NOTE | 2017-04-24 04:44 | NUR ---
Pt slept majority of shift. VSS on RA, Afebrile. Insulin gtt off. sTarted on Mod scale SSI and Levemir 60units qhs. DM diet started. Fluids changed to 1/2 ns +40meq KCL at 100 ml/hr. No bm this shift. denies pain. Plan: Con't current plan of care
[2017-04-24 05:20] LABS: BASOPHIL % 0.2 %; EOSINOPHIL # 0.1 K/uL (0.0-0.5); HEMOGLOBIN 12.8 g/dL (12.0-17.0); IMMATURE GRANULOCYTE % 0.2 %; LYMPHOCYTE % 24.5 %; MCV 81.5 fl (83.0-98.0); MONOCYTE # 0.7 K/uL (0.0-1.0); MONOCYTE % 5.9 %; NEUTROPHIL # (ANC) 8.3 K/uL (1.4-9.0); NEUTROPHIL % 68.2 %; NRBC % 0 /100WBC (0-0.00); RDW-CV 12.3 % (11.9-14.6); WBC 12.2 K/uL (4.0-11.0)
[2017-04-24 05:21] LABS: HEMATOCRIT 37.1 % (37.0-53.0); MCH 28.1 pg (27.0-34.0); MCHC 34.5 gm/dL (32.0-36.5); PLATELET COUNT 308 K/uL (150-450); RBC 4.55 M/uL (4.00-6.00)
[2017-04-24 08:22] LABS: BICARBONATE 26.3 mmol/L (18.0-23.0); PCO2 51 mmHg (35-45)
[2017-04-24 08:23] LABS: PO2 22 mmHg (80-90)
[2017-04-24 08:46] LABS: ALBUMIN 2.9 gm/dL (3.5-5.0); ALK PHOS 60 IU/L (33-138); ALT 19 IU/L (12-78); ANION GAP 11.2 (10.0-19.0); AST 9 IU/L (10-40); BLOOD UREA NITROGEN 16 mg/dL (6-24); CALCIUM 7.7 mg/dL (8.5-10.5); CHLORIDE 110 mMol/L (96-110); CO2 25 mMol/L (22-32); CREATININE 1.2 mg/dL (0.6-1.3); ESTIMATED GFR (MDRD EQUATION) > 60; POTASSIUM 4.2 mMol/L (3.7-5.1); SODIUM 142 mMol/L (135-145); TOTAL BILIRUBIN 0.8 mg/dL (0.0-1.5); TOTAL PROTEIN 5.6 g/dL (6.0-8.4)
--- NOTE | 2017-04-24 10:30 | NUR ---
Diabetes consult: Patient is well known to me from previous admissions. The patient reports having a caregiver, Edith, that comes to his house and watches him inject his long activing insulin every day at 1000. He reports she is diligent about reminding him to take his meal time insulin. The patient states he is in the process of moving into some low income housing. He receives assistance from the [employer] and is seeing Sd WILSON in [place]. The patient is alert and oriented. He understands how to treat a low blood sugar and we reviewed how to treat sick days and high blood sugars. Patient reports being out of testing supplies. Phone call was placed to [facility] and patient has script on file for testing supplies that will be filled.
--- NOTE | 2017-04-24 16:19 | NUR ---
Introduced self and role of care management to pt. He states he is ready to go home and his caregiver will be picking him up. He states at the end of April he will be moving to the low income housing there in [place]. He still has his caregivers everyday and his friend Chris who looks after him along with HHS worker Grady. He does his own insulin and the caregiver reminds him as well. 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 At this time denies any post discharge needs.
--- NOTE | 2017-04-24 16:48 | NUR ---
D:Patient discharged to that helps with medications. They verbelize understanding. Pt has personal belongings. Is going to stop at [facility] to get test strips for glucose monitor. Has appointment to follow up on diabetes. Discharged ambulatoryper [facility] to return home at 1555.
== END 2017-04-24 15:55 | disposition disaster alternative care site (69) | DRG 638 ==
LOC: GMED 10:02 → GPCU 12:01
PROVIDERS: Emergency Medicine; ADMIT Internal Medicine
DX: E10.10 Type 1 diabetes mellitus with ketoacidosis without coma (principal); N17.9 Acute kidney failure, unspecified; E87.5 Hyperkalemia; A08.4 Viral intestinal infection, unspecified; E86.0 Dehydration; K21.9 Gastro-esophageal reflux disease without esophagitis
CPT/HCPCS: C9113; J1644; J2405; J3480; J7030; J7040; J7042

== ENCOUNTER 2017-06-12 02:04 | Inpatient (IN) | payer MEDICARE, MEDICAID ==
[~2017-06-12] VITALS: Ht 175.3 cm; Wt 72.3 kg
--- NOTE | ~2017-06-12 | DS ---
PATIENT'S NAME: [facility] AGE: 27 Y [address] ROOM: [place] [address] LOCATION: [facility] ADMIT DATE: 06/12/2017 Discharge Summary DISCHARGE DATE: 06/12/2017 FAMILY PHYSICIAN: Corby Hernandez MD ATTENDING PHYSICIAN: Chuy Benitez ADMITTING DIAGNOSIS: Diabetic ketoacidosis. DISCHARGE DIAGNOSIS: Diabetic ketoacidosis, resolved. SECONDARY DIAGNOSIS: Diabetes mellitus, type 1. HISTORY OF PRESENT ILLNESS: The patient is a 27-year-old gentleman with past medical history of type 1 diabetes mellitus and noncompliance, who presents here with DKA. The patient reports that since yesterday morning, he has been having polyuria, polydipsia, and also had some nausea and vomiting about four times. Fingerstick glucose at home showed blood glucose around 326. His symptoms continued with consistent blood glucose levels in the 340s. HOSPITAL COURSE: The patient was admitted and was started on IV fluid and insulin. The patient was given subcu insulin every 2 hours. The patient's symptoms improved with last lab showing CO2 of 24, chloride of 104, sodium of 137, and BUN of 20. On further discussion, the patient reports that he had been missing some of his insulin regimen. A long discussion was made about adherence to medication. The patient reports that he will try to adhere to his insulin regimen. CONDITION: Stable. DISPOSITION: Home. DISCHARGE MEDICATION: Please see MAR. DISCHARGE INSTRUCTIONS: Follow up with primary care physician to adhere to his insulin regimen. FOLLOWUP: The patient is to follow up with his primary care physician in 1 week. Greater than 30 minutes was spent on discharge summary and plan. ROJELIO BRADSHAW MD PATIENT'S NAME: [facility] AGE: 27 Y [address] ROOM: [place] [address] LOCATION: [facility] ADMIT DATE: 06/12/2017 Discharge Summary DISCHARGE DATE: 06/12/2017 FAMILY PHYSICIAN: Corby Hernandez MD ATTENDING PHYSICIAN: Chuy Benitez/lazaral /[id number] d: 06/13/17 0334 t: 06/19/17 0614, DISCHARGE SUMMARY
--- NOTE | ~2017-06-12 | HP ---
PATIENT'S NAME: YOKO CURRAN [facility] AGE: 27 Y [address] ROOM: [address] [place], [place] [address] LOCATION: [facility] ADMIT DATE: 06/12/2017 History & Physical DISCHARGE DATE: FAMILY PHYSICIAN: PHYSICIAN, UNKNOWN ATTENDING PHYSICIAN: NIVIA BELLO DATE OF SERVICE: CHIEF COMPLAINT: Polyuria, polydipsia, nausea, and vomiting. HISTORY OF PRESENT ILLNESS: This is a 27-year-old male with a history of type 1 diabetes with prior admission here for DKA, and has history of poorly- controlled diabetes with most recent A1c on April 23, 2017 of 11.3. At home, he takes subcutaneous NovoLog 15 units 3 times a day with meals and also takes subcutaneous Lantus 60 units every morning. The patient checks fingerstick glucose at home twice a day in the morning fasting before breakfast and at bedtime. However, he says that he has not been consistent with fingerstick glucose check and also not consistent with using home insulin. The story is that since yesterday morning, the patient has been having polyuria with polydipsia and also nauseous and vomited about 4 times of bilious content. His fingerstick glucose at home check yesterday morning was around 326, and he gave himself 60 units of the subcutaneous Lantus in the morning. However, in the afternoon, his finger glucose was still high at 340, therefore, the patient went to emergency room at [facility]. Over there, he was treated with IV fluids and given additional 30 units of NovoLog subcu due to low bicarbonate and was sent home. However, the patient's symptoms persisted, and he went back again to [facility]. At that time, patient was referred here for further care. Fingerstick glucose was 103 over there on the second ED visit and that was around 10:30 p.m. The patient states that he has been having poor oral intake as well for the last few days. He denies any chest pain, shortness of breath, fever, chills, diarrhea, abdominal pain, cough, or any other symptoms. REVIEW OF SYSTEMS: As mentioned in the history of present illness. All other systems were reviewed and were negative except those mentioned in the history of present illness. PAST MEDICAL HISTORY: 1. Type 1 diabetes. 2. Gastroesophageal reflux disease. PATIENT'S NAME: YOKO CURRAN [facility] AGE: 27 Y [address] ROOM: [id number] [place], [place] [address] LOCATION: [facility] ADMIT DATE: 06/12/2017 History & Physical DISCHARGE DATE: FAMILY PHYSICIAN: PHYSICIAN, UNKNOWN ATTENDING PHYSICIAN: NIVIA BELLO 3. Depression. ALLERGIES: CAT DANDER. HOME MEDICATIONS: 1. Tylenol 1000 mg p.o. every 4 hours p.r.n. for pain or fever. 2. Pepto-Bismol 30 mL p.o. daily p.r.n. for indigestion. 3. Insulin NovoLog 15 units subcu 3 times a day with meals. 4. Insulin glargine 60 units subcu every morning. 5. Omeprazole 20 mg p.o. daily p.r.n. for gastroesophageal reflux disease. 6. Zoloft 25 mg p.o. every night at bedtime. SOCIAL HISTORY: The patient denies any cigarette or any illegal drug use. The patient is an occasional alcohol drinker but denies any alcohol abuse or alcohol withdrawal in the past. FAMILY HISTORY: Mother has epilepsy. Father, he does not remember much about his medical history. PAST SURGICAL HISTORY: Right knee arthroscopy in the past. PHYSICAL EXAMINATION: VITAL SIGNS: At the time of my evaluation, temperature 98.2, heart rate 92, respirations 16, blood pressure 119/58, saturation 98% on room air. GENERAL APPEARANCE: Alert and oriented x3, in no acute distress. HEENT: Pupils equally round and reactive to light. Extraocular muscles intact. Anicteric sclerae. Nasal turbinates are normal bilaterally. Dry oral mucosa. NECK: No JVD. CARDIOVASCULAR: Regular rate and rhythm. Normal S1, S2. No murmur. No rubs, no gallops. RESPIRATORY: Clear to auscultation. No rales. No rhonchi. No wheezing. No crackles. ABDOMEN: Soft, nontender, nondistended, bowel sounds present. No mass. EXTREMITIES: No edema in upper or lower extremities. NEUROLOGIC: Grossly nonfocal. SKIN: No ulcer, no rash, no cyanosis. LABORATORY DATA: Currently, our labs are pending. Blood work from the outside facility on June 11, 2017, at 3 p.m., sodium was 141, potassium 4.5, chloride 98, carbon PATIENT'S NAME: YOKO CURRAN [facility] AGE: 27 Y [address] ROOM: [id number] [place], [place] [address] LOCATION: [facility] ADMIT DATE: 06/12/2017 History & Physical DISCHARGE DATE: FAMILY PHYSICIAN: PHYSICIAN, UNKNOWN ATTENDING PHYSICIAN: NIVIA BELLO dioxide 15, glucose 335, BUN 20, creatinine 1.0, calcium 9.8, GFR 86. White blood cells 12.6, hemoglobin 16.9, hematocrit 51, platelet 389. IMAGING DATA: None. ASSESSMENT AND PLAN: 1. Diabetic ketoacidosis from type 1 diabetes diagnosed at outside facility from poorly- controlled diabetes: Medication noncompliance is likely the cause here. I will do diabetic ketoacidosis protocol with subcu regular insulin by using 0.1 unit/kg every 2 hours with fingerstick glucose check till DKA resolution. Check labs now. Continue IV fluid and replace potassium as necessary. Continue diabetic diet, and will check BMP every 2 hours to see if needs potassium replacement and check if DKA has resolved. I will check ABG right now for pH check. I will also check acetone given that it was not checked at the outside facility. Once DKA is resolved, will go back to home regimen and housekeeper/laundry assistant consult in AM. 2. Gastroesophageal reflux disease: Continue home proton pump inhibitor. I will change to once daily instead of p.r.n. 3. Depression: He is not suicidal. Continue his home medication. 4. Deep vein thrombosis prophylaxis: He can ambulate, he does not require any pharmacological agent. 5. He is a full code. Time spent in care on the day of admission 35 minutes where 10 minutes were spent on the chart review. The remainder of the time was spent on interview and physical examination, and also counseling, which includes going over the plan of care with the patient and addressing all his questions and concerns to his satisfaction. This time also includes going up plan of care with the nurse. Further plan will depend on clinical course. NIVIA BELLO MD CC/lazaral /[id number] D: [id number] T: [id number] HISTORY & PHYSICAL
[~2017-06-12 02:04] MED LIST changes: +NAPROXEN500 MG PO
[2017-06-12] MEDS ORDERED: ZOLOFT25 MG PO (02:38)
[2017-06-12 03:54] LABS: LACTATE 0.8 mEq/L (0.50-1.60)
[2017-06-12 03:55] LABS: BICARBONATE 19.3 mmol/L (18.0-23.0); PCO2 35 mmHg (35-45); PO2 87 mmHg (80-90)
[2017-06-12 03:55] LABS: BASOPHIL % 0.2 %; EOSINOPHIL % 0.1 %; HEMATOCRIT 42.5 % (37.0-53.0); HEMOGLOBIN 15.2 g/dL (12.0-17.0); IMMATURE GRANULOCYTE # 0.1 K/uL (0.0-0.3); IMMATURE GRANULOCYTE % 0.4 %; LYMPHOCYTE # 1.9 K/uL (0.8-4.0); LYMPHOCYTE % 14.8 %; MCH 29.1 pg (27.0-34.0); MCHC 35.8 gm/dL (32.0-36.5); MCV 81.3 fl (83.0-98.0); MONOCYTE # 0.4 K/uL (0.0-1.0); MONOCYTE % 3.4 %; MPV 9.3 fl (9.4-12.4); NEUTROPHIL # (ANC) 10.4 K/uL (1.4-9.0); NEUTROPHIL % 81.1 %; NRBC % 0 /100WBC (0-0.00); PLATELET COUNT 365 K/uL (150-450); RBC 5.23 M/uL (4.00-6.00); RDW-CV 12.4 % (11.9-14.6); WBC 12.8 K/uL (4.0-11.0)
[2017-06-12 04:10] LABS: ALBUMIN 3.6 gm/dL (3.5-5.0); ANION GAP 16.5 (10.0-19.0); CREATININE 1.3 mg/dL (0.6-1.3); POTASSIUM 4.5 mMol/L (3.7-5.1); TOTAL BILIRUBIN 0.8 mg/dL (0.0-1.5); TOTAL PROTEIN 6.9 g/dL (6.0-8.4)
--- NOTE | 2017-06-12 04:58 | NUR ---
Pt admitted to floor around 0220 from [facility] for nausea and vomiting. Pt states nausea started Sunday morning. Pt went to clinic Sunday afternoon and received a liter of fluids, felt better and went home. Pt went to [facility]'s ER sunday night for persistant nausea. Pt states vomited about 6 times yesterday. [facility] transferred pt to [facility]. Only significant health history includes type I diabetic. Pt lives alone. Does have a medicare interviewer that checks in on patient every day and helps patient with meds and needs.
--- NOTE | 2017-06-12 05:21 | NUR ---
Significant Event: Pt admitted for nausea/vomiting and DKA. Pt is a type I diabetic. DKA order set filled out. Accuchecks every 2 hours. Give regular insulin 0.1unit/kg sub-q for blood sugars over 200. VS q 1 hour x4 then routine. IV fluids infusing. On diabetic diet, tolerating well with no nausea yet. Will have BMP at 0600 and 0800. Home insulin is in med fridge. VSS. Follow up:
[2017-06-12 06:28] LABS: ANION GAP 15.1 (10.0-19.0); CREATININE 1.3 mg/dL (0.6-1.3); POTASSIUM 4.1 mMol/L (3.7-5.1)
[2017-06-12 08:35] LABS: ANION GAP 12.6 (10.0-19.0); CREATININE 1.2 mg/dL (0.6-1.3); POTASSIUM 3.6 mMol/L (3.7-5.1)
--- NOTE | 2017-06-12 09:43 | NUR ---
Diabetes consult: Patient is well known to me from previous admissions. The patient reports having vomited several times yesterday. He denies being exposed to ill persons and indicates that he continued to check his blood sugars and dose his insulin. Patient states he wasn't concerned that he was developing DKA as his blood sugars did not exceed 300. Patient indicates that upon arrival in [place] his blood sugar was 103. Blood sugars here at 0300 was 129, the have since elevated to 284 this a.m. Patient is scheduled to receive basal insulin. Patient reports having missed an appt with DOMINGUEZ Mendez at [facility] today. Recommended that he reschedule his appointment with her for next week. Patient reports he is feeling better. Education completed. Patient denies needing an insulin or testing supplies at home. He does have a caregiver that helps him remember to take his insulin.
[2017-06-12 13:41] LABS: BILIRUBIN URINE NEGATIVE (NEGATIVE); BLOOD URINE NEGATIVE /UL (NEGATIVE); COLOR URINE YELLOW (YELLOW); GLUCOSE URINE 1000 mg/dL (NEGATIVE); KETONE URINE 150 mg/dL (NEGATIVE); LEUKOCYTES URINE NEGATIVE /UL (NEGATIVE); NITRITE URINE NEGATIVE (NEGATIVE); PROTEIN URINE NEGATIVE (NEGATIVE); SPEC GRAVITY URINE 1.015 (1.003-1.035); TURBIDITY URINE CLEAR (CLEAR); UROBILINOGEN URINE NORMAL (NORMAL)
--- NOTE | 2017-06-12 14:53 | NUR ---
DISCHARGE: Patient and caregiver were explained discharge instructions. No new medications, educated on diabetic ketoacidosis. Verbalized understanding of teaching, no questions or concerns. IV removed by primary nurse. Taken to front door by aide and driven home by caregiver. Left with all belongings and scripts.
--- NOTE | 2017-06-12 15:26 | NUR ---
Significant Event: Pt denies pain. up with standby assist. Accuchecks changed to ACHS. Increased Levimer dose. Blood sugars in 200's this shift. Dc to home at 1500. States understanding of dc instructions. Follow up:
== END 2017-06-12 15:00 | disposition disaster alternative care site (69) | DRG 639 ==
LOC: GMSU 02:16
PROVIDERS: Internal Medicine; ADMIT Internal Medicine
DX: E10.10 Type 1 diabetes mellitus with ketoacidosis without coma (principal); F32.9 Major depressive disorder, single episode, unspecified; K21.9 Gastro-esophageal reflux disease without esophagitis; E87.6 Hypokalemia; Z91.14 Patient's other noncompliance with medication regimen; Z79.4 Long term (current) use of insulin
CPT/HCPCS: J3480